=== PATIENT | female | born 1955 | race Caucasian/White ===

== ENCOUNTER 2020-06-24 09:12 | Inpatient (IN) | payer OTHER ==
[~2020-06-24] VITALS: Ht 157.5 cm; Wt 72.4 kg
[~2020-06-24 09:12] MED LIST: ACID1TAB7 PO; AMLO-150 PO; HYDR20TA PO; PRED10TA PO; VANC1VIA3 PO; VEDO300V IV
[2020-06-24 10:26] LABS: BASOPHILS % (AUTO) 0 % (0-1); EOSINOPHILS # (AUTO) 0.07 x10^3/uL (0-0.4); EOSINOPHILS % (AUTO) 1 % (1-7); LYMPHOCYTES # (AUTO) 1.55 x10^3/uL (1-3.4); LYMPHOCYTES % (AUTO) 21 % (22-44); MD NO; MEAN CORPUSCULAR HGB CONC 33.1 g/dL (32.4-35.8); MEAN PLATELET VOLUME 6.9 fL (7.4-10.4); MONOCYTES # (AUTO) 0.37 x10^3/uL (0.2-0.8); MONOCYTES % (AUTO) 5 % (2-9); NEUTROPHILS # (AUTO) 5.56 x10^3/uL (1.8-6.8); NEUTROPHILS % (AUTO) 74 % (42-75); PLATELET COUNT 301 x10^3/uL (130-400); RED BLOOD COUNT 3.62 x10^6/uL (3.82-5.3); RED CELL DISTRIBUTION WIDTH 15.4 % (9.6-15.2)
[2020-06-24 10:33] LABS: ANION GAP 7 mmol/L (5-15); CALCIUM 8.2 mg/dL (8.5-10.1); CHLORIDE 109 mmol/L (98-107); CREATININE 0.76 mg/dL (0.55-1.02)
[2020-06-24] MEDS ORDERED: ONDANSETRON 2MG/ML, 2ML ONE (10:53)
[2020-06-24] MEDS ORDERED: MORPHINE SULFATE 4 MG/ML, 1ML ONE (10:53)
[2020-06-24] MEDS ORDERED: OMNIPAQUE 350 MG/ML, 75ML BOTTLE ONE (10:54)
[2020-06-24] MEDS ORDERED: morphine SULFATE 10 MG/ML, 1ML IVPush ONE (11:00)
[2020-06-24] MEDS ORDERED: MORPHINE SULFATE 4 MG/ML, 1ML IVPush ONE (11:00)
[2020-06-24] MEDS ORDERED: ONDANSETRON 2MG/ML, 2ML IVPush ONE (11:00)
[2020-06-24] MEDS ORDERED: HEPARIN 25,000 UNITS/250ML PMX 250 ML ONE (12:41)
[2020-06-24] MEDS ORDERED: HEPARIN 5,000 UNITS/ML, 1ML ONE (12:41)
[2020-06-24] MEDS: HEPARIN 25,000 UNITS/250ML PMX 250 ML IV PRN (12:59)
[2020-06-24] MEDS ORDERED: HEPARIN 5,000 UNITS/ML, 1ML IV ONE (13:00)
--- NOTE | 2020-06-24 15:04 | NUR ---
BREAK RN- UP TO BEDSIDE COMMODE
[2020-06-24 15:45] VITALS: BP 110/72
[2020-06-24] MEDS ORDERED: morphine SULFATE 10 MG/ML, 1ML IVPush PRN (16:30)
[2020-06-24] MEDS ORDERED: HYDROcodone/APAP 5/325 TABLET PO PRN (16:30)
[2020-06-24] MEDS ORDERED: MELATONIN 5 MG TABLET PO PRN (16:30)
[2020-06-24] MEDS ORDERED: ACETAMINOPHEN 325 MG TABLET PO PRN (16:30)
[2020-06-24] MEDS ORDERED: ONDANSETRON 2MG/ML, 2ML IVPush PRN (16:30)
[2020-06-24] MEDS ORDERED: ONDANSETRON ODT 4 MG PO PRN (16:30)
[2020-06-24] MEDS ORDERED: ENALAPRILAT 1.25 MG/ML, 2ML IVPush PRN (16:30)
[2020-06-24] MEDS ORDERED: GABAPENTIN 300 MG CAPSULE PO PRN (16:30)
[2020-06-24 17:25] VITALS: BP 115/84
[2020-06-24] MEDS ORDERED: AMLO-150 PO (17:55)
[2020-06-24 19:10] VITALS: BP 93/65
[2020-06-24] MEDS: HYDROCORTISONE 20 MG TABLET PO SCH (20:58)
[2020-06-24 20:59] VITALS: BP 93/68
[2020-06-24] MEDS ORDERED: LACTULOSE 10 GM/15 ML UDC PO SCH (21:00)
[2020-06-24] MEDS ORDERED: LACTULOSE 10 GM/15 ML UDC PO PRN (21:00)
[2020-06-24] MEDS: HEPARIN 5,000 UNITS/ML, 1ML IV PRN (21:20)
[2020-06-24 22:06] LABS: CLOSTRIDIUM DIFFICILE TOXIN NEGATIVE (Negative)
[2020-06-24 22:09] LABS: CLOSTRIDIUM DIFFICILE ANTIGEN POSITIVE
[2020-06-24 23:04] VITALS: BP 103/72
[2020-06-25] VITALS (7 sets, daily range): BP systolic 88–120; BP diastolic 62–80
[2020-06-25 01:35] LABS: HCT (SEDRATE) 31.3 % (34.6-47.8); MEAN CORPUSCULAR HEMOGLOBIN 29.6 pg (27.0-34.8); MEAN CORPUSCULAR HGB CONC 32.4 g/dL (32.4-35.8); MEAN PLATELET VOLUME 6.5 fL (7.4-10.4); PLATELET COUNT 338 x10^3/uL (130-400); RED BLOOD COUNT 3.43 x10^6/uL (3.82-5.3); RED CELL DISTRIBUTION WIDTH 15.8 % (9.6-15.2)
[2020-06-25 01:44] LABS: ANION GAP 8 mmol/L (5-15); CHLORIDE 105 mmol/L (98-107)
[2020-06-25 01:51] LABS: C-REACTIVE PROTEIN, QUANT > 19.00 mg/dL (0.02-0.49)
[2020-06-25 02:19] LABS: BASOPHILS # (AUTO) 0.01 x10^3/uL (0-0.1); BASOPHILS % (AUTO) 0 % (0-1); EOSINOPHILS # (AUTO) 0.02 x10^3/uL (0-0.4); EOSINOPHILS % (AUTO) 0 % (1-7); LYMPHOCYTES # (AUTO) 0.78 x10^3/uL (1-3.4); LYMPHOCYTES % (AUTO) 9 % (22-44); MD SCAN; MONOCYTES # (AUTO) 0.59 x10^3/uL (0.2-0.8); MONOCYTES % (AUTO) 7 % (2-9); NEUTROPHILS # (AUTO) 6.98 x10^3/uL (1.8-6.8); NEUTROPHILS % (AUTO) 83 % (42-75)
[2020-06-25] MEDS: HEPARIN 5,000 UNITS/ML, 1ML IV PRN ×3 (02:31→21:51)
[2020-06-25] MEDS: PANTOPRAZOLE 40MG TABLET PO SCH (06:29)
[2020-06-25] MEDS: HYDROCORTISONE 20 MG TABLET PO SCH ×4 (06:29→21:00)
[2020-06-25] MEDS: SENNA/DOCUSATE TABLET PO SCH (07:10)
[2020-06-25] MEDS ORDERED: HYDROCORTISONE 10 MG TABLET ONE ×3 (10:02→21:13)
[2020-06-25] MEDS: VANCOMYCIN 50 MG/ML ORAL SUSP PO SCH ×3 (10:03→21:21)
[2020-06-25] MEDS: HEPARIN 25,000 UNITS/250ML PMX 250 ML IV PRN (14:56)
[2020-06-26 01:39] VITALS: BP 131/82
[2020-06-26] MEDS: VANCOMYCIN 50 MG/ML ORAL SUSP PO SCH ×4 (04:00→21:45)
[2020-06-26] MEDS ORDERED: HYDROCORTISONE 10 MG TABLET ONE ×4 (05:21→21:24)
[2020-06-26] MEDS: PANTOPRAZOLE 40MG TABLET PO SCH (05:39)
[2020-06-26] MEDS: HYDROCORTISONE 20 MG TABLET PO SCH ×4 (05:39→21:44)
[2020-06-26 08:11] VITALS: BP 106/74
[2020-06-26] MEDS: SENNA/DOCUSATE TABLET PO SCH (08:18)
[2020-06-26 13:00] VITALS: BP 124/82
[2020-06-26] MEDS: HEPARIN 25,000 UNITS/250ML PMX 250 ML IV PRN (14:36)
[2020-06-26 16:42] LABS: INTERNATIONAL NORMALIZED RATIO 1.01 (0.93-1.1); PROTHROMBIN TIME 10.4 Seconds (9.6-11.5)
[2020-06-26] MEDS ORDERED: WARFARIN 5 MG TABLET PO-COUM ONE (18:00)
[2020-06-26] MEDS ORDERED: WARFARIN 7.5 MG TABLET PO-COUM ONE (18:00)
[2020-06-26 18:32] VITALS: BP 120/82
[2020-06-26 23:58] VITALS: BP 130/84
[2020-06-27 00:02] VITALS: BP 130/84
[2020-06-27] MEDS: VANCOMYCIN 50 MG/ML ORAL SUSP PO SCH ×4 (04:41→21:26)
[2020-06-27] MEDS ORDERED: HYDROCORTISONE 10 MG TABLET ONE ×4 (05:24→21:21)
[2020-06-27] MEDS: PANTOPRAZOLE 40MG TABLET PO SCH (05:26)
[2020-06-27] MEDS: HYDROCORTISONE 20 MG TABLET PO SCH ×4 (05:26→21:25)
[2020-06-27 05:45] LABS: INTERNATIONAL NORMALIZED RATIO 1.08 (0.93-1.1); PROTHROMBIN TIME 11.1 Seconds (9.6-11.5)
[2020-06-27 05:49] LABS: % IRON SATURATION 12 % (20-55); IRON LEVEL 25 mcg/dL (50-170); TOTAL IRON BINDING CAPACITY 214 mcg/dL (250-450)
[2020-06-27 07:23] VITALS: BP 122/75
[2020-06-27] MEDS: SENNA/DOCUSATE TABLET PO SCH (08:19)
[2020-06-27] MEDS: WARFARIN MODERAT DOSE PROTOCOL XX SCH (10:03)
[2020-06-27] MEDS: IRON SUCROSE COMPLEX 100MG/5ML IV SCH (12:23)
[2020-06-27 12:59] VITALS: BP 114/78
[2020-06-27] MEDS: HEPARIN 25,000 UNITS/250ML PMX 250 ML IV PRN (14:27)
[2020-06-27] MEDS ORDERED: WARFARIN 7.5 MG TABLET PO-COUM ONE (18:00)
[2020-06-27 19:17] VITALS: BP 123/84
[2020-06-28 01:16] VITALS: BP 126/84
[2020-06-28] MEDS: VANCOMYCIN 50 MG/ML ORAL SUSP PO SCH ×4 (04:15→21:46)
[2020-06-28] MEDS ORDERED: HYDROCORTISONE 10 MG TABLET ONE ×3 (05:53→16:17)
[2020-06-28] MEDS: PANTOPRAZOLE 40MG TABLET PO SCH (05:57)
[2020-06-28] MEDS: HYDROCORTISONE 20 MG TABLET PO SCH ×4 (05:57→21:46)
[2020-06-28 05:58] LABS: INTERNATIONAL NORMALIZED RATIO 2.58 (0.93-1.1); PROTHROMBIN TIME 26.8 Seconds (9.6-11.5)
[2020-06-28 07:48] VITALS: BP 119/80
[2020-06-28] MEDS: SENNA/DOCUSATE TABLET PO SCH (09:00)
[2020-06-28] MEDS ORDERED: IRON SUCROSE COMPLEX 100MG/5ML IV SCH (09:00)
[2020-06-28] MEDS: IRON SUCROSE COMPLEX 100MG/5ML IV SCH (09:16)
[2020-06-28] MEDS: WARFARIN MODERAT DOSE PROTOCOL XX SCH (11:11)
[2020-06-28 13:10] VITALS: BP 122/81
[2020-06-28] MEDS ORDERED: WARFARIN 2.5 MG TABLET PO-COUM ONE (18:00)
[2020-06-28 20:25] VITALS: BP 118/82
[2020-06-29 00:55] VITALS: BP 115/75
[2020-06-29] MEDS: VANCOMYCIN 50 MG/ML ORAL SUSP PO SCH ×4 (04:22→21:14)
[2020-06-29] MEDS: PANTOPRAZOLE 40MG TABLET PO SCH (06:17)
[2020-06-29] MEDS: HYDROCORTISONE 20 MG TABLET PO SCH ×4 (06:17→21:14)
[2020-06-29 06:48] LABS: INTERNATIONAL NORMALIZED RATIO 3.56 (0.93-1.1); PROTHROMBIN TIME 37.1 Seconds (9.6-11.5)
[2020-06-29] MEDS: SENNA/DOCUSATE TABLET PO SCH (07:30)
[2020-06-29] MEDS: IRON SUCROSE COMPLEX 100MG/5ML IV SCH (07:51)
[2020-06-29] MEDS ORDERED: HOLD COUMADIN MC PRN (08:00)
[2020-06-29 08:12] VITALS: BP 114/75
[2020-06-29] MEDS: WARFARIN MODERAT DOSE PROTOCOL XX SCH (10:39)
[2020-06-29 13:50] VITALS: BP 110/73
[2020-06-29] MEDS ORDERED: VANC1VIA3 PO (18:36)
[2020-06-29 20:38] VITALS: BP 126/81
[2020-06-30 04:38] VITALS: BP 126/79
[2020-06-30] MEDS: VANCOMYCIN 50 MG/ML ORAL SUSP PO SCH ×3 (04:45→15:47)
[2020-06-30] MEDS: PANTOPRAZOLE 40MG TABLET PO SCH (04:45)
[2020-06-30] MEDS: HYDROCORTISONE 20 MG TABLET PO SCH ×3 (04:45→15:47)
[2020-06-30 05:09] LABS: INTERNATIONAL NORMALIZED RATIO 2.58 (0.93-1.1); PROTHROMBIN TIME 26.8 Seconds (9.6-11.5)
[2020-06-30 08:40] VITALS: BP 122/75
[2020-06-30] MEDS: IRON SUCROSE COMPLEX 100MG/5ML IV SCH (08:54)
[2020-06-30] MEDS: SENNA/DOCUSATE TABLET PO SCH (08:54)
[2020-06-30] MEDS ORDERED: WARF2.5T74 PO (11:06)
[2020-06-30] MEDS: WARFARIN MODERAT DOSE PROTOCOL XX SCH (11:17)
[2020-06-30] MEDS ORDERED: PANT40TA6 PO (11:28)
[2020-06-30 14:29] VITALS: BP 115/80
[2020-06-30] MEDS ORDERED: WARFARIN 2.5 MG TABLET PO-COUM ONE (18:00)
== END 2020-06-30 16:45 | disposition home or self-care (01) | DRG 175 ==
LOC: ED 09:56 → EDIP 12:27 → 5SO 15:31
PROVIDERS: ADMIT Internal Medicine; ATTEND Family Medicine
DX: I26.99 Other pulmonary embolism without acute cor pulmonale (principal); J96.01 Acute respiratory failure with hypoxia; I82.413 Acute embolism and thrombosis of femoral vein, bilateral; D62 Acute posthemorrhagic anemia; A04.71 Enterocolitis due to Clostridium difficile, recurrent; K51.90 Ulcerative colitis, unspecified, without complications; K92.2 Gastrointestinal hemorrhage, unspecified; I82.432 Acute embolism and thrombosis of left popliteal vein; D50.9 Iron deficiency anemia, unspecified; I10 Essential (primary) hypertension; R00.0 Tachycardia, unspecified; Z82.49 Family history of ischemic heart disease and other diseases of the circulatory system; Z83.3 Family history of diabetes mellitus; R79.89 Other specified abnormal findings of blood chemistry; Z95.828 Presence of other vascular implants and grafts
CPT/HCPCS: 36415; 96374; 96375; 99291; J3370; 71275; 80048; 83540; 83550; 83993; 85014; 85018; 85025; 85520; 85610; 85651; 86140; 87324; 87493; 93005; 93306; 93356; 93970; G0378; J1644; J1756; J2405; Q9967; J2270